=== PATIENT | male | born 1980 | race Two or more races ===

== ENCOUNTER 2018-04-05 15:07 | Outpatient (CLI) | payer OTHER | END 2018-04-05 15:44 | disposition home or self-care (01) | LOC: RAD 501 15:07 | DX: K60.0 Acute anal fissure (principal); K62.5 Hemorrhage of anus and rectum; K59.09 Other constipation ==

== ENCOUNTER 2018-04-13 06:15 | Day surgery (SDC) | payer OTHER ==
[2018-04-13] MEDS ORDERED: PERCOCET 5-3251 EACH PO (09:58)
[2018-04-13] MEDS ORDERED: COLACE100 MG PO (09:58)
== END 2018-04-13 14:45 | disposition home or self-care (01) ==
LOC: CIR.AMB 06:15
DX: K60.3 Anal fistula (principal); K62.89 Other specified diseases of anus and rectum